=== PATIENT | male | born 1935 | race Caucasian/White ===

== ENCOUNTER 2016-05-26 14:38 | Outpatient (CLI) | payer MEDICARE, OTHER | END 2016-05-26 14:39 | disposition home or self-care (01) | DX: I48.0 Paroxysmal atrial fibrillation (principal); Z86.73 Personal history of transient ischemic attack (TIA), and cerebral infarction without residual deficits ==

== ENCOUNTER 2016-06-09 14:25 | Outpatient (CLI) | payer MEDICARE, OTHER | END 2016-06-09 14:26 | disposition home or self-care (01) | DX: Z86.73 Personal history of transient ischemic attack (TIA), and cerebral infarction without residual deficits (principal); I48.0 Paroxysmal atrial fibrillation ==

== ENCOUNTER 2016-06-29 15:19 | Outpatient (CLI) | payer MEDICARE, OTHER | END 2016-06-29 15:20 | disposition home or self-care (01) | DX: I48.0 Paroxysmal atrial fibrillation (principal); Z86.73 Personal history of transient ischemic attack (TIA), and cerebral infarction without residual deficits ==

== ENCOUNTER 2016-07-13 14:16 | Outpatient (CLI) | payer MEDICARE, OTHER | END 2016-07-13 14:17 | disposition home or self-care (01) | DX: I48.0 Paroxysmal atrial fibrillation (principal); Z86.73 Personal history of transient ischemic attack (TIA), and cerebral infarction without residual deficits ==

== ENCOUNTER 2016-07-14 13:18 | Outpatient (CLI) | payer MEDICARE, OTHER | END 2016-07-14 13:19 | disposition home or self-care (01) | DX: I48.0 Paroxysmal atrial fibrillation (principal); Z86.73 Personal history of transient ischemic attack (TIA), and cerebral infarction without residual deficits ==

== ENCOUNTER 2016-07-15 08:25 | Outpatient (CLI) | payer MEDICARE, OTHER | END 2016-07-15 08:26 | disposition home or self-care (01) | DX: I48.0 Paroxysmal atrial fibrillation (principal); Z86.73 Personal history of transient ischemic attack (TIA), and cerebral infarction without residual deficits ==

== ENCOUNTER 2016-07-20 13:30 | Outpatient (CLI) | payer MEDICARE, OTHER | END 2016-07-20 13:31 | disposition home or self-care (01) | DX: I48.0 Paroxysmal atrial fibrillation (principal); Z86.73 Personal history of transient ischemic attack (TIA), and cerebral infarction without residual deficits ==

== ENCOUNTER 2016-07-27 13:13 | Outpatient (CLI) | payer MEDICARE, OTHER | END 2016-07-27 13:14 | disposition home or self-care (01) | DX: I48.0 Paroxysmal atrial fibrillation (principal); Z86.73 Personal history of transient ischemic attack (TIA), and cerebral infarction without residual deficits ==

== ENCOUNTER 2016-07-30 13:23 | Outpatient (CLI) | payer MEDICARE, OTHER | END 2016-07-30 13:24 | disposition home or self-care (01) | DX: Z86.73 Personal history of transient ischemic attack (TIA), and cerebral infarction without residual deficits (principal); I48.0 Paroxysmal atrial fibrillation ==

== ENCOUNTER 2016-08-03 08:00 | Outpatient (CLI) | payer MEDICARE, OTHER | END 2016-08-03 08:01 | disposition home or self-care (01) | DX: Z86.73 Personal history of transient ischemic attack (TIA), and cerebral infarction without residual deficits (principal); I48.0 Paroxysmal atrial fibrillation ==

== ENCOUNTER 2016-08-10 14:41 | Outpatient (CLI) | payer MEDICARE, OTHER | END 2016-08-10 14:42 | disposition home or self-care (01) | DX: I48.0 Paroxysmal atrial fibrillation (principal); Z86.73 Personal history of transient ischemic attack (TIA), and cerebral infarction without residual deficits ==

== ENCOUNTER 2016-08-24 08:00 | Outpatient (CLI) | payer MEDICARE, OTHER | END 2016-08-24 08:01 | disposition home or self-care (01) | DX: I48.0 Paroxysmal atrial fibrillation (principal); Z86.73 Personal history of transient ischemic attack (TIA), and cerebral infarction without residual deficits ==

== ENCOUNTER 2016-08-31 08:00 | Outpatient (CLI) | payer MEDICARE, OTHER | END 2016-08-31 08:01 | DX: I48.0 Paroxysmal atrial fibrillation (principal) ==

== ENCOUNTER 2016-09-07 08:00 | Outpatient (CLI) | payer MEDICARE, OTHER | END 2016-09-07 08:01 | DX: I48.0 Paroxysmal atrial fibrillation (principal) ==

== ENCOUNTER 2016-09-11 11:46 | Inpatient (IN) | payer MEDICARE, OTHER ==
[2016-09-11] MEDS ORDERED: PIPERACILLIN/TAZOBACTAM 4.5 GM in SODIUM CHLORIDE 0.9% MINIBAG 100 ML IV STA (15:45)
[2016-09-11] MEDS ORDERED: SODIUM CHLORIDE FLUSH 0.9% 10 ML SYRINGE IVP PRN (17:27)
[2016-09-11] MEDS ORDERED: ONDANSETRON ODT 4 MG TABLET TL PRN (17:27)
[2016-09-11] MEDS: oxyCODONE 5 MG TABLET PO PRN ×3 (18:39→23:49)
[2016-09-11] MEDS: ALBUTEROL NEB 2.5 MG/3 ML INH SCH (20:50)
[2016-09-11] MEDS ORDERED: INSULIN ASPART 300 UNIT/3 ML PEN SUBQ SCH (21:00)
[2016-09-11] MEDS: METOPROLOL TARTRATE 25 MG TABLET PO SCH (22:01)
[2016-09-11] MEDS: SODIUM CHLORIDE FLUSH 0.9% 10 ML SYRINGE IVP SCH (22:02)
[2016-09-11] MEDS: PIPERACILLIN/TAZOBACTAM 3.375 GM in SODIUM CHLORIDE 0.9% MINIBAG 100 ML IV SCH (22:02)
[2016-09-12] MEDS: ALBUTEROL NEB 2.5 MG/3 ML INH SCH ×5 (01:25→17:59)
[2016-09-12] MEDS ORDERED: ONDANSETRON 4 MG/2 ML VIAL IVP PRN (03:23)
[2016-09-12] MEDS: oxyCODONE 5 MG TABLET PO PRN ×6 (03:25→22:29)
[2016-09-12] MEDS: PIPERACILLIN/TAZOBACTAM 3.375 GM in SODIUM CHLORIDE 0.9% MINIBAG 100 ML IV SCH ×4 (03:29→22:25)
[2016-09-12] MEDS: SODIUM CHLORIDE FLUSH 0.9% 10 ML SYRINGE IVP SCH ×3 (06:55→22:29)
[2016-09-12] MEDS ORDERED: oxyCODONE ER 10 MG TABLET PO SCH (09:00)
[2016-09-12] MEDS: POLYETHYLENE GLYCOL 3350 17 GM PACKET PO SCH (09:35)
[2016-09-12] MEDS: LACTOB/S.THERMOPHL/BIFIDO CAPSULE PO SCH ×2 (09:36→18:11)
[2016-09-12] MEDS: CITALOPRAM 10 MG TABLET PO SCH (09:36)
[2016-09-12] MEDS: METOPROLOL TARTRATE 25 MG TABLET PO SCH ×2 (09:38→22:24)
[2016-09-12] MEDS: WARFARIN 1 MG TABLET PO SCH (14:53)
[2016-09-12] MEDS: ACETAMINOPHEN 500 MG TABLET PO PRN (19:01)
[2016-09-13] MEDS: ACETAMINOPHEN 500 MG TABLET PO PRN ×2 (02:43→10:49)
[2016-09-13] MEDS: oxyCODONE 5 MG TABLET PO PRN ×4 (02:43→14:43)
[2016-09-13] MEDS: PIPERACILLIN/TAZOBACTAM 3.375 GM in SODIUM CHLORIDE 0.9% MINIBAG 100 ML IV SCH ×3 (03:55→16:25)
[2016-09-13] MEDS: SODIUM CHLORIDE FLUSH 0.9% 10 ML SYRINGE IVP SCH ×2 (03:56→10:50)
[2016-09-13] MEDS: WARFARIN 1 MG TABLET PO SCH (07:00)
[2016-09-13] MEDS: METOPROLOL TARTRATE 25 MG TABLET PO SCH (08:27)
[2016-09-13] MEDS: CITALOPRAM 10 MG TABLET PO SCH (08:27)
[2016-09-13] MEDS: LACTOB/S.THERMOPHL/BIFIDO CAPSULE PO SCH ×2 (08:29→16:34)
[2016-09-13] MEDS: POLYETHYLENE GLYCOL 3350 17 GM PACKET PO SCH (08:30)
[2016-09-13] MEDS ORDERED: CYANOCOBALAMIN 1,000 MCG/ML VIAL IM ONE (10:00)
[2016-09-13] MEDS ORDERED: BACLOFEN 10 MG TABLET PO PRN (10:23)
[2016-09-13] MEDS: PANTOPRAZOLE 40 MG TABLET PO SCH ×2 (10:48→16:34)
[2016-09-13] MEDS ORDERED: FUROSEMIDE 20 MG TABLET PO SCH (11:00)
[2016-09-13] MEDS ORDERED: SENNA 8.6 MG TABLET PO PRN (11:00)
[2016-09-13] MEDS ORDERED: CLINDAMYCIN 600 MG/50 ML 50 ML IV SCH (17:00)
[2016-09-13] MEDS ORDERED: TAMSULOSIN 0.4 MG CAPSULE PO SCH (21:00)
[2016-09-14] MEDS ORDERED: FERROUS SULFATE 325 MG TABLET PO SCH (08:00)
[2016-09-14] MEDS ORDERED: amLODIPine 5 MG TABLET PO SCH (09:00)
== END 2016-09-13 19:30 | disposition home health service (06) | DRG 179 ==
DX: J69.0 Pneumonitis due to inhalation of food and vomit (principal); J18.9 Pneumonia, unspecified organism; I10 Essential (primary) hypertension; R13.10 Dysphagia, unspecified; I48.0 Paroxysmal atrial fibrillation; E78.2 Mixed hyperlipidemia; E86.0 Dehydration; E05.90 Thyrotoxicosis, unspecified without thyrotoxic crisis or storm; J44.9 Chronic obstructive pulmonary disease, unspecified; E10.9 Type 1 diabetes mellitus without complications; I11.9 Hypertensive heart disease without heart failure; M48.55XD Collapsed vertebra, not elsewhere classified, thoracolumbar region, subsequent encounter for fracture with routine healing; M54.9 Dorsalgia, unspecified; G89.29 Other chronic pain; N40.1 Benign prostatic hyperplasia with lower urinary tract symptoms; R33.8 Other retention of urine; K21.9 Gastro-esophageal reflux disease without esophagitis; M45.0 Ankylosing spondylitis of multiple sites in spine; I25.10 Atherosclerotic heart disease of native coronary artery without angina pectoris; Z66 Do not resuscitate; Z79.01 Long term (current) use of anticoagulants; Z86.73 Personal history of transient ischemic attack (TIA), and cerebral infarction without residual deficits; Z79.891 Long term (current) use of opiate analgesic; Z85.46 Personal history of malignant neoplasm of prostate; Z79.899 Other long term (current) drug therapy; Z79.4 Long term (current) use of insulin

== ENCOUNTER 2016-09-14 11:00 | Outpatient (CLI) | payer MEDICARE, OTHER | END 2016-09-14 11:01 | disposition home or self-care (01) | DX: Z79.899 Other long term (current) drug therapy (principal) ==

== ENCOUNTER 2016-09-17 02:35 | Outpatient (CLI) | payer MEDICARE, OTHER | END 2016-09-17 02:36 | disposition critical access hospital (66) | DX: R06.02 Shortness of breath (principal); T18.0XXA Foreign body in mouth, initial encounter; Y92.009 Unspecified place in unspecified non-institutional (private) residence as the place of occurrence of the external cause | CPT/HCPCS: A0425; A0427 ==

== ENCOUNTER 2016-09-17 03:07 | Inpatient (IN) | payer MEDICARE, OTHER ==
[2016-09-17] MEDS ORDERED: ETOMIDATE 40 MG/20 ML VIAL IVP ONE (03:18)
[2016-09-17] MEDS ORDERED: SUCCINYLCHOLINE 200 MG/10 ML VIAL ONE (03:18)
[2016-09-17] MEDS ORDERED: FUROSEMIDE 40 MG/4 ML VIAL ONE (03:20)
[2016-09-17] MEDS ORDERED: ACETAMINOPHEN 500 MG TABLET PO PRN (03:51)
[2016-09-17] MEDS ORDERED: BACLOFEN 10 MG TABLET PO PRN (03:51)
[2016-09-17] MEDS ORDERED: oxyCODONE 5 MG TABLET PO PRN ×2 (03:55)
[2016-09-17] MEDS ORDERED: ONDANSETRON 4 MG/2 ML VIAL IVP PRN (03:55)
[2016-09-17] MEDS ORDERED: ACETAMINOPHEN 325 MG TABLET PO PRN (03:55)
[2016-09-17] MEDS ORDERED: PROCHLORPERAZINE 10 MG/2 ML VIAL IVP PRN (03:55)
[2016-09-17] MEDS ORDERED: FUROSEMIDE 40 MG/4 ML VIAL IVP STA (03:59)
[2016-09-17] MEDS: SODIUM CHLORIDE FLUSH 0.9% 10 ML SYRINGE IVP SCH ×3 (05:09→15:42)
[2016-09-17] MEDS: PIPERACILLIN/TAZOBACTAM 4.5 GM in SODIUM CHLORIDE 0.9% MINIBAG 100 ML IV SCH ×4 (05:09→23:13)
[2016-09-17] MEDS: INSULIN REGULAR HUMAN 100 UNIT/1 ML 10 ML MDV SUBQ SCH ×4 (06:03→23:32)
[2016-09-17] MEDS: FAMOTIDINE 20 MG/50 ML 50 ML IV SCH (08:13)
[2016-09-17] MEDS ORDERED: FUROSEMIDE 20 MG TABLET PO SCH (09:00)
[2016-09-17] MEDS ORDERED: WARFARIN 1 MG TABLET PO SCH (09:00)
[2016-09-17] MEDS ORDERED: LACTOB/S.THERMOPHL/BIFIDO CAPSULE PO SCH (09:00)
[2016-09-17] MEDS ORDERED: CELECOXIB 100 MG CAPSULE PO SCH (09:00)
[2016-09-17] MEDS ORDERED: METOPROLOL TARTRATE 50 MG TABLET PO SCH (09:00)
[2016-09-17] MEDS: POTASSIUM CHLOR 10 MEQ/100 ML 100 ML IV SCH ×5 (09:15→13:00)
[2016-09-17] MEDS ORDERED: ZINC OXIDE 20% OINT 28.35 GM TUBE TOP ONE (09:39)
[2016-09-17] MEDS: CHLORHEXIDINE GLUCONATE 15 ML UDC PO SCH ×2 (09:49→21:00)
[2016-09-17] MEDS: amLODIPine 5 MG TABLET PO SCH (09:51)
[2016-09-17] MEDS: TAMSULOSIN 0.4 MG CAPSULE PO SCH (09:51)
[2016-09-17] MEDS: CITALOPRAM 10 MG TABLET PO SCH (09:52)
[2016-09-17] MEDS: LISINOPRIL 20 MG TABLET PO SCH (09:53)
[2016-09-17] MEDS: fentaNYL 25 MCG PATCH TOP SCH (09:56)
[2016-09-17] MEDS: FLUTICASONE NASAL SPRAY NAS SCH (09:58)
[2016-09-17] MEDS: MORPHINE 2 MG/ML SYRINGE IVP PRN ×5 (11:07→23:14)
[2016-09-17] MEDS: LORazepam 2 MG/ML SYRINGE IVP ONE ×2 (17:04→17:54)
[2016-09-17] MEDS: ACETAMINOPHEN 1,000 MG/100 ML 100 ML IV PRN (22:19)
[2016-09-17] MEDS: LIDOCAINE PATCH 5% TOP PRN (23:14)
[2016-09-18] MEDS: SODIUM CHLORIDE 0.9% 1,000 ML IV SCH ×3 (02:39→14:14)
[2016-09-18] MEDS: MORPHINE 2 MG/ML SYRINGE IVP PRN ×8 (04:36→23:39)
[2016-09-18] MEDS: INSULIN REGULAR HUMAN 100 UNIT/1 ML 10 ML MDV SUBQ SCH ×3 (05:20→17:59)
[2016-09-18] MEDS ORDERED: PHYTONADIONE INJ (ADULT) 5 MG in SODIUM CHLORIDE 0.9% 50 ML IV ONE (05:53)
[2016-09-18] MEDS: SODIUM CHLORIDE FLUSH 0.9% 10 ML SYRINGE IVP SCH ×2 (06:02→14:14)
[2016-09-18] MEDS: PIPERACILLIN/TAZOBACTAM 4.5 GM in SODIUM CHLORIDE 0.9% MINIBAG 100 ML IV SCH ×3 (06:02→18:14)
[2016-09-18] MEDS: POTASSIUM CHLOR 10 MEQ/100 ML 100 ML IV SCH ×4 (06:25→09:35)
[2016-09-18] MEDS ORDERED: PHYTONADIONE INJ (ADULT) 5 MG in SODIUM CHLORIDE 0.9% 50 ML IV SCH (07:30)
[2016-09-18] MEDS: CITALOPRAM 10 MG TABLET PO SCH (07:46)
[2016-09-18] MEDS: LISINOPRIL 20 MG TABLET PO SCH (07:46)
[2016-09-18] MEDS: amLODIPine 5 MG TABLET PO SCH (07:46)
[2016-09-18] MEDS: TAMSULOSIN 0.4 MG CAPSULE PO SCH (07:46)
[2016-09-18] MEDS: SODIUM CHLORIDE FLUSH 0.9% 10 ML SYRINGE IVP PRN ×6 (07:57→19:11)
[2016-09-18] MEDS: ACETAMINOPHEN 1,000 MG/100 ML 100 ML IV PRN ×3 (08:35→20:32)
[2016-09-18] MEDS: FAMOTIDINE 20 MG/50 ML 50 ML IV SCH (08:57)
[2016-09-18] MEDS: FLUTICASONE NASAL SPRAY NAS SCH (08:57)
[2016-09-18] MEDS: CHLORHEXIDINE GLUCONATE 15 ML UDC PO SCH ×2 (08:57→20:25)
[2016-09-18] MEDS ORDERED: CELECOXIB 100 MG CAPSULE PO SCH (09:00)
[2016-09-18] MEDS: METOPROLOL 5 MG/5 ML VIAL IVP PRN ×2 (15:28→23:42)
[2016-09-18] MEDS ORDERED: FUROSEMIDE 20 MG/2 ML VIAL IVP PRN (16:47)
[2016-09-18] MEDS ORDERED: LORazepam 2 MG/ML SYRINGE IVP STA (22:06)
[2016-09-18] MEDS ORDERED: LORazepam 2 MG/ML SYRINGE IVP SCH (23:33)
[2016-09-19] MEDS: SODIUM CHLORIDE FLUSH 0.9% 10 ML SYRINGE IVP SCH ×4 (00:16→22:00)
[2016-09-19] MEDS: INSULIN REGULAR HUMAN 100 UNIT/1 ML 10 ML MDV SUBQ SCH ×4 (00:21→18:33)
[2016-09-19] MEDS: SODIUM CHLORIDE 0.9% 1,000 ML IV SCH (00:28)
[2016-09-19] MEDS: PIPERACILLIN/TAZOBACTAM 4.5 GM in SODIUM CHLORIDE 0.9% MINIBAG 100 ML IV SCH ×4 (00:32→20:30)
[2016-09-19] MEDS: MORPHINE 2 MG/ML SYRINGE IVP PRN ×6 (05:14→18:33)
[2016-09-19] MEDS: METOPROLOL 5 MG/5 ML VIAL IVP PRN ×3 (06:06→19:49)
[2016-09-19] MEDS ORDERED: METOPROLOL 5 MG/5 ML VIAL IVP STA (08:13)
[2016-09-19] MEDS ORDERED: LORazepam 2 MG/ML SYRINGE IVP PRN (08:14)
[2016-09-19] MEDS: CHLORHEXIDINE GLUCONATE 15 ML UDC PO SCH ×2 (08:15→21:29)
[2016-09-19] MEDS ORDERED: FUROSEMIDE 40 MG/4 ML VIAL IVP STA (08:25)
[2016-09-19] MEDS: IPRATROPIUM/ALBUTEROL 3 ML NEB INH PRN ×2 (08:30→14:00)
[2016-09-19] MEDS ORDERED: SODIUM CHLORIDE 0.9% 1,000 ML IV SCH (09:06)
[2016-09-19] MEDS: LORazepam 2 MG/ML SYRINGE IVP PRN ×3 (09:52→14:45)
[2016-09-19] MEDS: LISINOPRIL 20 MG TABLET PO SCH ×2 (10:49→10:52)
[2016-09-19] MEDS: TAMSULOSIN 0.4 MG CAPSULE PO SCH (10:49)
[2016-09-19] MEDS: FLUTICASONE NASAL SPRAY NAS SCH (10:51)
[2016-09-19] MEDS: FAMOTIDINE 20 MG/50 ML 50 ML IV SCH (10:55)
[2016-09-19] MEDS: fentaNYL 25 MCG PATCH TOP SCH (12:43)
[2016-09-19] MEDS ORDERED: fentaNYL 25 MCG PATCH TOP SCH (13:00)
[2016-09-19] MEDS ORDERED: MAGNESIUM SULFATE 2 GRAM 50 ML IV ONE (13:44)
[2016-09-19] MEDS: ACETAMINOPHEN 1,000 MG/100 ML 100 ML IV PRN (19:49)
[2016-09-19] MEDS: SODIUM CHLORIDE FLUSH 0.9% 10 ML SYRINGE IVP PRN (19:52)
[2016-09-19] MEDS ORDERED: FUROSEMIDE 100 MG/10 ML VIAL ONE (19:59)
[2016-09-19] MEDS ORDERED: FUROSEMIDE 40 MG/4 ML VIAL IVP SCH (20:02)
[2016-09-19] MEDS: CEFEPIME 2 GM in SODIUM CHLORIDE 0.9% MINIBAG 100 ML IV SCH (20:34)
[2016-09-19] MEDS ORDERED: VANCOMYCIN PER PHARMACY 1 GM in SODIUM CHLORIDE 0.9% 250 ML IV SCH (21:00)
[2016-09-19] MEDS: VANCOMYCIN INJ 0.75 GM in SODIUM CHLORIDE 0.9% 250 ML IV SCH (21:26)
[2016-09-20] MEDS: CLINDAMYCIN 900 MG/50 ML 50 ML IV SCH ×5 (00:43→23:44)
[2016-09-20] MEDS: INSULIN REGULAR HUMAN 100 UNIT/1 ML 10 ML MDV SUBQ SCH ×5 (00:47→23:44)
[2016-09-20] MEDS: MORPHINE 2 MG/ML SYRINGE IVP PRN ×7 (02:07→22:33)
[2016-09-20] MEDS: LIDOCAINE PATCH 5% TOP PRN (03:27)
[2016-09-20] MEDS: POTASSIUM CHLOR 10 MEQ/100 ML 100 ML IV SCH ×4 (06:44→12:07)
[2016-09-20] MEDS: METOPROLOL 5 MG/5 ML VIAL IVP PRN ×3 (07:39→20:03)
[2016-09-20] MEDS ORDERED: POTASSIUM PHOSPHATE 15 MMOL in SODIUM CHLORIDE 0.9% 250 ML IV SCH (08:00)
[2016-09-20] MEDS: LORazepam 2 MG/ML SYRINGE IVP PRN ×2 (08:42→13:00)
[2016-09-20] MEDS: SODIUM CHLORIDE FLUSH 0.9% 10 ML SYRINGE IVP SCH ×3 (09:31→21:03)
[2016-09-20] MEDS: FLUTICASONE NASAL SPRAY NAS SCH (09:31)
[2016-09-20] MEDS: TAMSULOSIN 0.4 MG CAPSULE PO SCH (10:04)
[2016-09-20] MEDS: CEFEPIME 2 GM in SODIUM CHLORIDE 0.9% MINIBAG 100 ML IV SCH ×2 (10:15→21:02)
[2016-09-20] MEDS: FAMOTIDINE 20 MG/50 ML 50 ML IV SCH (10:15)
[2016-09-20] MEDS: CHLORHEXIDINE GLUCONATE 15 ML UDC PO SCH ×2 (10:16→22:32)
[2016-09-20] MEDS ORDERED: LIDOCAINE JELLY 2% 5 ML TUBE TOP ONE (12:04)
[2016-09-20] MEDS ORDERED: FLUTICASONE NASAL SPRAY NAS PRN (12:07)
[2016-09-20] MEDS ORDERED: DIGOXIN 500 MCG/2 ML AMP IVP ONE (12:22)
[2016-09-20] MEDS: VANCOMYCIN INJ 0.75 GM in SODIUM CHLORIDE 0.9% 250 ML IV SCH (14:43)
[2016-09-20] MEDS: ACETAMINOPHEN 1,000 MG/100 ML 100 ML IV PRN (19:43)
[2016-09-20] MEDS: SODIUM CHLORIDE FLUSH 0.9% 10 ML SYRINGE IVP PRN ×3 (20:04→22:34)
[2016-09-20] MEDS: DIGOXIN 500 MCG/2 ML AMP IVP SCH (22:33)
[2016-09-21] MEDS: SODIUM CHLORIDE FLUSH 0.9% 10 ML SYRINGE IVP PRN ×2 (03:06→11:43)
[2016-09-21] MEDS: MORPHINE 2 MG/ML SYRINGE IVP PRN ×9 (03:06→23:18)
[2016-09-21] MEDS: DIGOXIN 500 MCG/2 ML AMP IVP SCH ×2 (04:18)
[2016-09-21] MEDS: SODIUM CHLORIDE FLUSH 0.9% 10 ML SYRINGE IVP SCH ×3 (04:19→20:23)
[2016-09-21] MEDS: ACETAMINOPHEN 1,000 MG/100 ML 100 ML IV PRN ×2 (05:19→10:25)
[2016-09-21] MEDS: METOPROLOL 5 MG/5 ML VIAL IVP PRN ×4 (05:30→23:19)
[2016-09-21] MEDS: CLINDAMYCIN 900 MG/50 ML 50 ML IV SCH ×4 (05:36→23:18)
[2016-09-21] MEDS: INSULIN REGULAR HUMAN 100 UNIT/1 ML 10 ML MDV SUBQ SCH ×4 (06:01→23:18)
[2016-09-21] MEDS: POTASSIUM CHLOR 10 MEQ/100 ML 100 ML IV SCH ×4 (06:42→09:53)
[2016-09-21] MEDS: D5.45NS W/20 MEQ KCL 1,000 ML IV SCH (08:01)
[2016-09-21] MEDS: TAMSULOSIN 0.4 MG CAPSULE PO SCH (08:08)
[2016-09-21] MEDS: LISINOPRIL 20 MG TABLET PO SCH (08:08)
[2016-09-21] MEDS: CEFEPIME 2 GM in SODIUM CHLORIDE 0.9% MINIBAG 100 ML IV SCH ×2 (08:24→20:21)
[2016-09-21] MEDS: FAMOTIDINE 20 MG/50 ML 50 ML IV SCH (08:24)
[2016-09-21] MEDS: CHLORHEXIDINE GLUCONATE 15 ML UDC PO SCH ×2 (08:24→20:22)
[2016-09-21] MEDS ORDERED: COCAINE 4 ML BOTTLE TOP SCH (08:26)
[2016-09-21] MEDS ORDERED: LIDOCAINE JELLY 2% 5 ML TUBE TOP ONE (09:00)
[2016-09-21] MEDS: VANCOMYCIN INJ 0.75 GM in SODIUM CHLORIDE 0.9% 250 ML IV SCH (09:32)
[2016-09-21] MEDS: LORazepam 2 MG/ML SYRINGE IVP PRN ×2 (09:52→13:52)
[2016-09-21] MEDS ORDERED: SCOPOLAMINE PATCH TOP SCH (20:00)
[2016-09-21] MEDS: LIDOCAINE PATCH 5% TOP PRN (20:22)
[2016-09-22] MEDS: VANCOMYCIN INJ 0.75 GM in SODIUM CHLORIDE 0.9% 250 ML IV SCH (02:02)
[2016-09-22] MEDS: MORPHINE 2 MG/ML SYRINGE IVP PRN ×3 (04:04→08:01)
[2016-09-22] MEDS ORDERED: METOPROLOL 5 MG/5 ML VIAL IVP STA ×2 (04:10→06:03)
[2016-09-22] MEDS ORDERED: FUROSEMIDE 40 MG/4 ML VIAL IVP STA (04:11)
[2016-09-22] MEDS: LORazepam 2 MG/ML SYRINGE IVP PRN ×2 (04:14→07:34)
[2016-09-22] MEDS: METOPROLOL 5 MG/5 ML VIAL IVP PRN (04:16)
[2016-09-22] MEDS: CLINDAMYCIN 900 MG/50 ML 50 ML IV SCH (05:50)
[2016-09-22] MEDS: INSULIN REGULAR HUMAN 100 UNIT/1 ML 10 ML MDV SUBQ SCH (05:51)
[2016-09-22] MEDS: SODIUM CHLORIDE FLUSH 0.9% 10 ML SYRINGE IVP SCH (05:53)
[2016-09-22] MEDS: LISINOPRIL 20 MG TABLET PO SCH (07:43)
[2016-09-22] MEDS: TAMSULOSIN 0.4 MG CAPSULE PO SCH (07:43)
[2016-09-22] MEDS ORDERED: DIGOXIN 500 MCG/2 ML AMP IVP SCH (09:00)
[2016-09-22] MEDS: CEFEPIME 2 GM in SODIUM CHLORIDE 0.9% MINIBAG 100 ML IV SCH (09:41)
[2016-09-22] MEDS: CHLORHEXIDINE GLUCONATE 15 ML UDC PO SCH (09:42)
[2016-09-22] MEDS: FAMOTIDINE 20 MG/50 ML 50 ML IV SCH (09:42)
[2016-09-22] MEDS: D5.45NS W/20 MEQ KCL 1,000 ML IV SCH (09:43)
== END 2016-09-22 08:10 | disposition expired | DRG 177 ==
PROC: 30233K1 Transfusion of Nonautologous Frozen Plasma into Peripheral Vein, Percutaneous Approach (ICD-10-PCS; principal; 2016-09-18)
DX: J69.0 Pneumonitis due to inhalation of food and vomit (principal); I48.91 Unspecified atrial fibrillation; J44.9 Chronic obstructive pulmonary disease, unspecified; E10.8 Type 1 diabetes mellitus with unspecified complications; J96.01 Acute respiratory failure with hypoxia; E46 Unspecified protein-calorie malnutrition; I25.10 Atherosclerotic heart disease of native coronary artery without angina pectoris; E78.00 Pure hypercholesterolemia, unspecified; Z86.73 Personal history of transient ischemic attack (TIA), and cerebral infarction without residual deficits; R13.10 Dysphagia, unspecified; E11.65 Type 2 diabetes mellitus with hyperglycemia; I48.2 Chronic atrial fibrillation; I10 Essential (primary) hypertension; M45.9 Ankylosing spondylitis of unspecified sites in spine; G89.29 Other chronic pain; M54.9 Dorsalgia, unspecified; I34.0 Nonrheumatic mitral (valve) insufficiency; K21.9 Gastro-esophageal reflux disease without esophagitis; E78.5 Hyperlipidemia, unspecified; Z79.01 Long term (current) use of anticoagulants; Z79.4 Long term (current) use of insulin; Z95.5 Presence of coronary angioplasty implant and graft; Z85.46 Personal history of malignant neoplasm of prostate; Z90.79 Acquired absence of other genital organ(s); Z90.49 Acquired absence of other specified parts of digestive tract; Z92.3 Personal history of irradiation; Z87.828 Personal history of other (healed) physical injury and trauma; Z66 Do not resuscitate; Z79.899 Other long term (current) drug therapy; Z68.22 Body mass index [BMI] 22.0-22.9, adult